=== PATIENT | male | born 1970 | race American Indian/Alaskan Native ===

== ENCOUNTER 2018-02-02 12:52 | Emergency (ER) | payer OTHER ==
[~2018-02-02] VITALS: Ht 165.1 cm; Wt 76.4 kg
--- OUTSIDE RECORDS SUMMARY | ~2018-02-02 | XMS | Clinical Summary ---
Demographics + + + | Address | [address] | | | [place] [address] | + + + | Home Phone | | + + + | Preferred Language | Unknown | + + + | Marital Status | Single | + + + | Moravian Affiliation | Unknown | + + + | Race | Unknown | + + + | Ethnic Group | Unknown | + + + Author + + + | Author | [facility] | + + + | Organization | [facility] | + + + | Address | Unknown | + + + | Phone | Unavailable | + + + Support + + +---------+ + | Name | Relationship | Address | Phone | + + +---------+ + | Ricardo Lyon | ECON | Unknown | | + + +---------+ + Care Team Providers + +------+ + | Care Sales And Service Associate Name | Role | Phone | + +------+ + | Joseluis Vegas MD | PP | | + +------+ + Allergies No Known Allergies Current Medications + + +-------+---------+------+------+-------+ | Prescription | Sig. | Disp. | Refills | Star | End | Statu | | | | | | t | Date | s | | | | | | Date | | | + + +-------+---------+------+------+-------+ | phenytoin | Take 300 mg by mouth | | | | | Activ | | (DILANTIN) 100 MG ER | 2 (two) times | | | | | e | | capsule | daily. | | | | | | + + +-------+---------+------+------+-------+ | amLODIPine | Take 10 mg by mouth | | | | | Activ | | (NORVASC) 10 MG | daily. | | | | | e | | tablet | | | | | | | + + +-------+---------+------+------+-------+ | | Take 25 mg by mouth | | | | | Activ | | hydrochlorothiazide | daily. | | | | | e | | (HYDRODIURIL) 25 MG | | | | | | | | tablet | | | | | | | + + +-------+---------+------+------+-------+ | lisinopril | Take 20 mg by mouth | | | | | Activ | | (ZESTRIL) 20 MG | daily. | | | | | e | | tablet | | | | | | | + + +-------+---------+------+------+-------+ | simvastatin | Take 40 mg by mouth | | | | | Activ | | (ZOCOR) 40 MG tablet | nightly. | | | | | e | + + +-------+---------+------+------+-------+ Active Problems + + + | Problem | Noted Date | + + + | Pneumonia, organism unspecified(486) | 03/01/2015 | + + + | Pleural thickening | 03/01/2015 | + + + | Tobacco abuse | 03/01/2015 | + + + Family History + +------+ + + | Relation | Name | Status | Comments | + +------+ + + | Father | | | | + +------+ + + | Mother | | | | + +------+ + + Social History + +-------+ +--------+------+ | Tobacco Use | Types | Packs/Day | Years | Date | | | | | Used | | + +-------+ +--------+------+ | Current Some Day | | | 23 | | | Smoker | | | | | + +-------+ +--------+------+ + +---+---+---+ | Smokeless Tobacco: | | | | | Never Used | | | | + +---+---+---+ + + | Comments: 2 cig daily | + + + + +---------+ + | Alcohol Use | Drinks/We | oz/Week | Comments | | | ek | | | + + +---------+ + | Yes | | | | + + +---------+ + + + + | Sex Assigned at | Date Recorded | | | | + + + | Not on file | | + + + Last Filed Vital Signs + + + + | Vital Sign | Reading | Time Taken | + + + + | Blood Pressure | 201/128 | 04/02/2015 2:32 PM PST | + + + + | Pulse | 109 | 04/02/2015 2:32 PM PST | + + + + | Temperature | 36.6 C (97.9 F) | 04/02/2015 2:32 PM PST | + + + + | Respiratory Rate | - | - | + + + + | Oxygen Saturation | 97% | 04/02/2015 2:32 PM PST | + + + + | Inhaled Oxygen | - | - | | Concentration | | | + + + + | Weight | 82.1 kg (181 lb) | 04/02/2015 2:32 PM PST | + + + + | Height | 165.1 cm (5' 5") | 04/02/2015 2:32 PM PST | + + + + | Body Mass Index | 30.12 | 04/02/2015 2:32 PM PST | + + + + Plan of Treatment Not on file Results Not on filefrom Last 3 Months Insurance + +--------+ +------+-------+---------+ | Payer | Benefi | Subscriber | Type | Phone | Address | | | t Plan | ID | | | | | | / | | | | | | | Group | | | | | + +--------+ +------+-------+---------+ | [employer] | FC-NET | [id number] | | | | | | WORK | | | | | + +--------+ +------+-------+---------+ | [employer] | YELLOW | [phone] | | | | | PLANS | [place] | | | | | + +--------+ +------+-------+---------+ + +--------+ +--------+ + + | Guarantor Name | Accoun | Relation to | Date | Phone | Billing Address | | | t Type | Patient | of | | | | | | | | | | + +--------+ +--------+ + + | NENA GREY | Person | 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
--- OUTSIDE RECORDS SUMMARY | ~2018-02-02 | XMS | Clinical Summary ---
Demographics + + + | Address | [address] | | | [place] [address] | + + + | Home Phone | | + + + | Preferred Language | Unknown | + + + | Marital Status | Single | + + + | Caodaism Affiliation | 1009 | + + + | Race | Unknown | + + + | Ethnic Group | Unknown | + + + Author + + + | Author | [facility] | | | and [place] | + + + | Organization | [facility] | | | and [place] | + + + | Address | Unknown | + + + | Phone | Unavailable | + + + Support + + +---------+ + | Name | Relationship | Address | Phone | + + +---------+ + | ROSS LOTT | ECON | Unknown | | + + +---------+ + Care Team Providers + +------+ + | Care Claims Account Specialist Name | Role | Phone | + +------+ + | Phoebe De Leon PA-C | PP | | + +------+ + Allergies Not on File Current Medications Not on file Active Problems Not on file Social History + +-------+ +--------+------+ | Tobacco Use | Types | Packs/Day | Years | Date | | | | | Used | | + +-------+ +--------+------+ | Never Assessed | | | | | + +-------+ +--------+------+ + + + | Sex Assigned at | Date Recorded | | | | + + + | Not on file | | + + + Plan of Treatment + + + + + | Health Maintenance | Due Date | Last Done | Comments | + + + + + | Vaccine: | | | | | Dtap/Tdap/Td (1 - | 8 | | | | Tdap) | | | | + + + + + | Vaccine: Influenza | | | | | (#1) | 8 | | | + + + + + Results Not on filefrom Last 3 Months Insurance + +--------+ +--------+ +---------+ | Payer | Benefi | Subscriber | Type | Phone | Address | | | t Plan | ID | | | | | | / | | | | | | | Group | | | | | + +--------+ +--------+ +---------+ | [employer] | [employer] | [id number] | Medica | [phone]- | | | MEDICAID HMO | HEALTH | | id | [id number] | | | | [place] | | | | | | | [place] | | | | | + +--------+ +--------+ +---------+ + +--------+ +--------+ + + | Guarantor Name | Accoun | Relation to | Date | Phone | Billing Address | | | t Type | Patient | of | | | | | | | | | | + +--------+ +--------+ + + | NENA GREY | Person | Self | [birth year] | 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
--- OUTSIDE RECORDS SUMMARY | ~2018-02-02 | XMS | Clinical Summary ---
Demographics + + + | Address | [address] | | | [place] [address] | + + + | Home Phone | | + + + | Preferred Language | Unknown | + + + | Marital Status | Single | + + + | Sikh Affiliation | 1009 | + + + | Race | Unknown | + + + | Ethnic Group | Unknown | + + + Author + + + | Author | [facility] | | | and [place] | + + + | Organization | [facility] | | | and [place] [...] Team Providers + +------+ + | Care Neurology Technician Name | Role | Phone | + [...] | [employer] | [employer] | [id number] | Medica | [phone]- | | | [...] | | al/Fam | | 1971 | [phone] | [place], [place] | | | [place] | | | [phone] | [phone] | + +--------+ +--------+ + +"
--- OUTSIDE RECORDS SUMMARY | ~2018-02-02 | XMS | Clinical Summary ---
Demographics + + + | Address | [address] | | | [place] [address] | + + + | Home Phone | | + + + | Preferred Language | Unknown | + + + | Marital Status | Single | + + + | Jain Affiliation | Unknown | + + + | Race | Unknown | + + + | Ethnic Group | Unknown | + + + Author + + + | Author | [facility] | + + + | Organization | [facility] | + + + | Address | Unknown | + + + | Phone | Unavailable | + + + Support + + +---------+ + | Name | Relationship | Address | Phone | + + +---------+ + | Ricardo Lyon | ECON | Unknown | | + + +---------+ + Care Team Providers + +------+ + | Care As400 Programmer Analyst Name | Role | Phone | + [...] +------+-------+---------+ | [employer] | FC-NET | [id number] | | | | | | WORK | | | | | + +--------+ +------+-------+---------+ | [employer] | YELLOW | [phone] | | | | | PLANS | [...] | | al/Fam | | 1971 | [phone] | [address], | | | [place] | | | [address]: | [place] [address] | | | | | | | | | | | | [phone] | | | | | | | [phone] | | + +--------+ +--------+ + +
[~2018-02-02 12:52] MED LIST: AMLODIPINE BESY10 MG PO; ATIVAN1 MG PO; ATORVASTATIN CA20 MG PO; CLONIDINE HCL0.1 MG PO; FLUTICASONE PRO16 GM NAS; HYDROCHLOROTHIA25 MG PO; LEVAQUIN500 MG PO; LEVETIRACETAM1000 MG PO; LISINOPRIL-HCT1 EACH PO; METOPROLOL TART50 MG PO; NAPROXEN375 MG PO; PHENYTOIN SODI100 MG PO; PRINIVIL20 MG PO; ROSUVASTATIN CA10 MG PO; SENOKOT8.6 MG PO; SULFACETAMIDE S15 ML OU; TRAMADOL HCL50 MG PO; XALATAN2.5 ML OU; ZESTORETIC 20-251 EA PO; ZOFRAN ODT4 MG PO
== END 2018-02-02 18:03 | disposition short-term general hospital (02) ==
LOC: ED 12:52
DX: T68.XXXA Hypothermia, initial encounter (principal); K72.90 Hepatic failure, unspecified without coma; K92.2 Gastrointestinal hemorrhage, unspecified; D64.9 Anemia, unspecified; I10 Essential (primary) hypertension; Z87.891 Personal history of nicotine dependence; Z79.899 Other long term (current) drug therapy
CPT/HCPCS: 36430; 71045; 80053; 81001; 82140; 83605; 83690; 85025; 85610; 85730; 86850; 86900; 86901; 86920; 86927; 87088; 96361; 96365; 96375; 99285; G0480; J0692; J2405; J7030